=== PATIENT | male | born 2000 | race Caucasian/White ===

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

== ENCOUNTER 2022-04-17 18:16 | Emergency (ER) | payer OTHER ==
[2022-04-17] MEDS ORDERED: Adacel Vial IM ONE ×2 (18:29→18:31)
[2022-04-17] MEDS ORDERED: SILVADENE 50 GM TP ONE ×2 (18:29→18:31)
--- NOTE | 2022-04-17 18:47 | ERPHSYRPT ---
- History of Present Illness Time Seen by Provider: 04/17/22 18:26 Source: patient Exam Limitations: no limitations Patient Subjective Stated Complaint: Burn Triage Nursing Assessment: Patient ambulated back to ED and transferred self to bed. Patient A+O x3. Patient's skin pink, warm and dry. Patient complains of burn to left elbow after burning it from grease at work. Patient complains of pain /10. Patient's left elbow noted to be red. Physician History: 21 years old presented in the ER with chief complaint of grease burn to left elbow while at work. He immediately applied dry honey paste and ice to the ER. Complaining of minimal pain currently. No difficulty movements of elbow. Has redness of elbow. No blistering. Unsure about tetanus status. Timing/Duration: today, sudden, improved Quality: painful Severity: mild Location: extremities Possible Causes: other Associated Symptoms: rash Allergies/Adverse Reactions: No Known Drug Allergies Allergy (Verified 04/17/22 18:23) Hx Tetanus, Diphtheria Vaccination/Date Given: No Hx Influenza Vaccination/Date Given: No Hx Pneumococcal Vaccination/Date Given: No Immunizations Up to Date: Yes Travel Risk - International Travel Have you traveled outside of the country in past 3 weeks: No - Coronavirus Screening Are you exhibiting any of the following symptoms?: No Close contact with a COVID-19 positive Pt in past 14-21 Days: No - Vaccine Status Have you recieved a Covid-19 vaccination: No - Review of Systems Constitutional: No Symptoms Ears, Nose, & Throat: No Symptoms Respiratory: No Symptoms Cardiac: No Symptoms Abdominal/Gastrointestinal: No Symptoms Genitourinary Symptoms: No Symptoms Musculoskeletal: Injury Skin: Rash Neurological: No Symptoms Psychological: No Symptoms Endocrine: No Symptoms Hematologic/Lymphatic: No Symptoms (She will need) Immunological/Allergic: No Symptoms - Past Medical History Pertinent Past Medical History: Yes Endocrine Medical History: Diabetes Type II GI Medical History: Gallbladder Disease, Other Other Medical History: enlarged heart at - Past Surgical History Past Surgical History: Yes Gastrointestinal: Cholecystectomy Other Surgical History: rt ear graft for hole in ear. tonsils/adnoid - Social History Smoking Status: Current every day smoker How long have you smoked: years Exposure to second hand smoke: Yes Drug Use: none Patient Lives Alone: No - Nursing Vital Signs Nursing Vital Signs: Initial Vital Signs Temperature 96.9 F 04/17/22 18:24 Pulse Rate 107 H 04/17/22 18:24 Respiratory Rate 18 04/17/22 18:24 Blood Pressure 140/105 04/17/22 18:24 O2 Sat by Pulse Oximetry 97 04/17/22 18:24 Pain Scale Pain Intensity 1 - Physical Exam General Appearance: no apparent distress, alert Eye Exam: PERRL/EOMI Neck Exam: normal inspection, non-tender, supple, full range of motion Respiratory Exam: normal breath sounds, lungs clear Cardiovascular Exam: regular rate/rhythm, normal heart sounds Back Exam: normal inspection, normal range of motion Extremity Exam: leavitt (Erythema elbow and proximal dorsal forearm. Warm and tender to touch. Intact range of motion at elbow), inflammation Neurologic Exam: alert, oriented x 3, cooperative Skin Exam: rash SpO2 Interpretation: normal SpO2: 97 O2 Delivery: Room Air Ordered Tests: Medication Summary Discontinued Medications Generic Name Dose Route Start Last Admin Trade Name Freq PRN Reason Stop Dose Admin Diphtheria/Tetanus/Acell Pertussis 0.5 ml 04/17/22 18:29 04/17/22 18:39 Tdap --Diph,Pertuss(Acell),Tet Vac/Pf 0.5 Ml Vial IM 04/17/22 18:30 0.5 ml .ONCE ONE Administration Diphtheria/Tetanus/Acell Pertussis Confirm 04/17/22 18:31 Tdap --Diph,Pertuss(Acell),Tet Vac/Pf 0.5 Ml Vial Administered 04/17/22 18:32 Dose 0.5 ml IM .STK-MED ONE Silver Sulfadiazine 50 gm 04/17/22 18:29 04/17/22 18:35 Silver Sulfadiazine 50 Gm Tube TP 04/17/22 18:30 50 gm STAT ONE Administration Silver Sulfadiazine Confirm 04/17/22 18:31 Silver Sulfadiazine 50 Gm Tube Administered 04/17/22 18:32 Dose 50 gm TP .STK-MED ONE - Progress Progress: improved Progress Note: 04/17/22 18:45 It is cleaned, tetanus is updated. Silvadene cream applied. Recommended Tylenol/ibuprofen for pain. I offered pain medications here which she refused. Outpatient follow-up. Counseled pt/family regarding: diagnosis, need for follow-up - Departure Departure Disposition: Home Clinical Impression: Burn of elbow Condition: Stable Critical Care Time: No Referrals: SHELLY LEE [Primary Care Provider] - Follow up/PCP as directed (1-2 days for reevaluation) Instructions: Skin [place] Additional Instructions: Daily dressing changes. Follow-up with primary care for reevaluation. Take Tylenol/ibuprofen as needed for pain Prescriptions: Ibuprofen 600 mg PO Q6HPRN PRN 10 Days #20 tablet PRN Reason: Pain Silver Sulfadiazine 50 gm [Silvadene 50 gm] 50 gm TP BID 7 Days #1 tu
[2022-04-17 18:58] VITALS: BP 124/84; PULSE 105; O2SAT 93
== END 2022-04-17 18:58 | disposition home or self-care (01) ==
LOC: ED 18:16
DX: T22.122A Burn of first degree of left elbow, initial encounter (principal); X08.8XXA Exposure to other specified smoke, fire and flames, initial encounter; Y99.0 Civilian activity done for income or pay; E11.9 Type 2 diabetes mellitus without complications; Z72.0 Tobacco use; Z28.310 Unvaccinated for COVID-19
CPT/HCPCS: 90471; 90715; 99282; A9270-GY

== ENCOUNTER 2024-01-22 14:02 | Emergency (ER) | payer OTHER ==
--- NOTE | 2024-01-22 14:11 | ERPHSYRPT ---
- History of Present Illness Time Seen by Provider: 01/22/24 14:11 Source: patient Exam Limitations: no limitations Physician History: This is a 23-year-old diabetic gentleman who noticed redness in the inner aspect of his left thigh. He is unsure how he got this. However he noticed this area. He does have a history of folliculitis in the past. He did go to an outpatient, urgent care clinic. He did not realize that they sent in a prescription for Bactrim DS and he never picked up the prescription. He feels the redness and tenderness is getting worse. He does not have fevers. He has not had any drainage but there is evidence of what appears to be pus in the follicles of the hair of this leg Timing/Duration: day(s) (4 to 5 days ago) Quality: painful Severity: mild Location: extremities (Inner aspect left thigh) Possible Causes: no cause identified Associated Symptoms: change in skin texture Allergies/Adverse Reactions: No Known Drug Allergies Allergy (Verified 01/22/24 14:09) Home Medications: No Reportable Medications [No Reported Medications] 01/22/24 [History] Hx Tetanus, Diphtheria Vaccination/Date Given: No Hx Influenza Vaccination/Date Given: No Hx Pneumococcal Vaccination/Date Given: No Travel Risk - International Travel Have you traveled outside of the country in past 3 weeks: No - Emerging Infectious Disease Are you exhibiting symptoms associated with any current EIDs: No - Review of Systems Constitutional: No Symptoms Eyes: No Symptoms Ears, Nose, & Throat: No Symptoms Respiratory: No Symptoms Cardiac: No Symptoms Abdominal/Gastrointestinal: No Symptoms Genitourinary Symptoms: No Symptoms Musculoskeletal: No Symptoms Skin: Cellulitis (Left medial thigh), Induration (Left medial thigh), Other (No abscess) Neurological: No Symptoms Psychological: No Symptoms Endocrine: No Symptoms Hematologic/Lymphatic: No Symptoms Immunological/Allergic: No Symptoms All Other Systems: Reviewed and Negative - Past Medical History Pertinent Past Medical History: Yes Endocrine Medical History: Diabetes Type II GI Medical History: Gallbladder Disease, Other Other Medical History: enlarged heart at - Past Surgical History Past Surgical History: Yes Gastrointestinal: Cholecystectomy Other Surgical History: rt ear graft for hole in ear. tonsils/adnoid - Social History Smoking Status: Current every day smoker How long have you smoked: years Exposure to second hand smoke: Yes Drug Use: none Patient Lives Alone: No - Nursing Vital Signs Nursing Vital Signs: Initial Vital Signs Temperature 98.5 F 01/22/24 14:10 Pulse Rate 95 H 01/22/24 14:10 Respiratory Rate 12 01/22/24 14:10 Blood Pressure 140/81 01/22/24 14:10 O2 Sat by Pulse Oximetry 97 01/22/24 14:10 Pain Scale Pain Intensity 3 - Physical Exam General Appearance: no apparent distress, alert, anxiety Eye Exam: PERRL/EOMI, eyes nml inspection Ears, Nose, Throat Exam: normal ENT inspection, moist mucous membranes Neck Exam: normal inspection, non-tender, supple, full range of motion Respiratory Exam: normal breath sounds, lungs clear, airway intact, No chest tenderness, No respiratory distress Cardiovascular Exam: regular rate/rhythm, normal heart sounds, normal peripheral pulses Gastrointestinal/Abdomen Exam: No tenderness Rectal Exam: not done Back Exam: normal inspection, normal range of motion, No CVA tenderness, No vertebral tenderness Extremity Exam: normal range of motion, pelvis stable, inflammation, tenderness (In the area of cellulitis and indurated tissue.), other (No obvious fluctuance. It appears more like a folliculitis) Neurologic Exam: alert, oriented x 3, cooperative, assistant general manager II-XII nml as tested, normal mood/affect, nml cerebellar function, nml station & gait, sensation nml Skin Exam: warm, dry, other (Cellulitis as described above) Lymphatic Exam: No adenopathy SpO2 Interpretation: normal O2 Delivery: Room Air Procedures - Incision and Drainage Time of Procedure: 15:00 Site: Left medial thigh cc's of anesthesia: other (None) Blade Size: 15 I & D Procedure: culture obtained, other (Prepped with alcohol) Results: other (No pus present) - Course Nursing assessment & vital signs reviewed: Yes Ordered Tests: Medication Summary Generic Name Dose Route Start Last Admin Trade Name Freq PRN Reason Stop Dose Admin Ceftriaxone Sodium 1,000 mg 01/22/24 15:06 Ceftriaxone Sodium 1000 Mg Inj Vial IM 01/22/24 15:07 STAT ONE Trimethoprim/Sulfamethoxazole 1 tab 01/22/24 15:06 Smz/Tmp Ds Tablet 1 Tablet PO 01/22/24 15:07 STAT ONE - Progress Progress: unchanged Progress Note: 01/22/24 15:19 My medical decision making and the assignment of low complexity to this patient's medical issue today is based on review of the patient's past medical history, review the patient's medication list, review patient drug allergy list, history present illness and physical findings on examination. Incision and drainage of this site yielded no pus. However, I did obtain a culture from the subcutaneous tissue layer. No radiographic studies are necessary in this patient. 01/22/24 15:20 I offered to provide the patient with 1 or 2 days off of work while he keeps this area clean and takes his antibiotics as prescribed. However, he declined. He stated that he cannot miss work. 01/22/24 15:21 I have recommended that the patient return tomorrow for reassessment of this area of cellulitis. Counseled pt/family regarding: diagnosis, need for follow-up Medical Desision Making - Diagnostic Testing Diagnostic test were ordered, analyzed, and reviewed by me: No - Risk of complications Minimal Risk: Minimal risk of morbidity - Departure Departure Disposition: Home Clinical Impression: Cellulitis of left thigh, Induration of skin, Folliculitis Condition: Stable Critical Care Time: No Referrals: SHELLY LEE [Primary Care Provider] - Follow up/PCP as directed Additional Instructions: Do not apply lotions or ointments or creams to the site. Wash the site twice a day with antibacterial soap and water. May scrub the site. Rinse then blot dry or use a hair spring cutter. Cover the site with a bandage. Return to the emergency department tomorrow for reevaluation. quality assurance supervisor final your Bactrim DS prescription that is already at your pharmacy and take it as prescribed. Use Tylenol and ibuprofen for pain control.
[2024-01-22 14:27] VITALS: TEMP 98.5; O2SAT 97
[2024-01-22] MEDS ORDERED: BACTRIM DS TABLET PO ONE (15:11)
[2024-01-22] MEDS ORDERED: Rocephin 1000 MG INJ ONE (15:11)
[2024-01-22] MEDS: BACTRIM DS TABLET PO ONE (15:13)
[2024-01-22] MEDS: Rocephin 1000 MG INJ IM ONE (15:13)
[2024-01-22 15:21] VITALS: BP 129/85; PULSE 76; RESP 16
== END 2024-01-22 15:37 | disposition home or self-care (01) ==
LOC: ED 14:02
DX: L03.116 Cellulitis of left lower limb (principal); R23.4 Changes in skin texture; L73.9 Follicular disorder, unspecified; E11.9 Type 2 diabetes mellitus without complications; Z72.0 Tobacco use
CPT/HCPCS: 87070; 96372; 99283; J0696; A9270-GY

== ENCOUNTER 2024-01-23 14:06 | Emergency (ER) | payer OTHER | END 2024-01-23 15:28 | disposition left against medical advice (07) | LOC: ED 14:06 | DX: Z53.21 Procedure and treatment not carried out due to patient leaving prior to being seen by health care provider (principal) ==